=== PATIENT | male | born 1945 | race Caucasian/White ===

== ENCOUNTER 2017-11-19 06:43 | Day surgery (SDC) | payer MEDICARE, OTHER ==
[~2017-11-19 06:43] MED LIST: CYCLOPENTOLATE 1% OPHTH DROPS 2 ML ONE; KETOROLAC 0.45% OPHTH DROPS ONE; PHENYLEPHRINE 2.5% OPHTH 2 ML DROPS ONE; PROPARACAINE 0.5% OPHTH DROPS 15 ML ONE
[2017-11-19] MEDS ORDERED: BRIMONIDINE 0.2% OPHTH DROPS 5 ML ONE (07:06)
[2017-11-19] MEDS ORDERED: TIMOLOL 0.5% OPHTH DROPS ONE (07:07)
[2017-11-19] MEDS ORDERED: CYCLOPENTOLATE 1% OPHTH DROPS 2 ML RIGHTEYE ONE (07:09)
[2017-11-19] MEDS ORDERED: PHENYLEPHRINE 2.5% OPHTH 2 ML DROPS RIGHTEYE ONE (07:09)
[2017-11-19] MEDS ORDERED: PROPARACAINE 0.5% OPHTH DROPS 15 ML RIGHTEYE ONE ×2 (07:09→08:27)
[2017-11-19] MEDS ORDERED: KETOROLAC 0.45% OPHTH DROPS RIGHTEYE ONE (07:09)
[2017-11-19] MEDS ORDERED: LACTATED RINGERS 500 ML IV ONE (07:15)
[2017-11-19] MEDS ORDERED: MIDAZOLAM 2 MG/2 ML VIAL IVP ONE (07:30)
[2017-11-19] MEDS ORDERED: BRIMONIDINE 0.2% OPHTH DROPS 5 ML OPTH ONE (08:26)
[2017-11-19] MEDS ORDERED: BSS/LIDOCAINE/EPINEPHRINE 1 ML SYRINGE IO ONE (08:26)
[2017-11-19] MEDS ORDERED: TIMOLOL 0.5% OPHTH DROPS OPTH ONE (08:26)
[2017-11-19] MEDS ORDERED: EPINEPHrine 1 MG/ML AMP IVP ONE (08:26)
[2017-11-19] MEDS ORDERED: CHONDR SULF/HYALURONATE SYRINGE IO ONE (08:26)
[2017-11-19] MEDS ORDERED: TRIAMCIN/MOXIFLOX/VANCO 1 ML VIAL IO ONE (08:27)
[2017-11-19 09:18] VITALS: BP 138/78
--- NOTE | 2017-11-19 09:50 | OPERATIVE REPORT ---
DATE OF SERVICE: 11/19/2017 Physician: Bryson Rg MD DATE OF SURGERY: 11/19/2017 PREOPERATIVE DIAGNOSIS: Visually significant cataract, right eye. This is his first cataract surgery. POSTOPERATIVE DIAGNOSIS: Visually significant cataract, right eye. This is his first cataract surgery. NAME OF PROCEDURE: Phacoemulsification with posterior chamber intraocular lens implant, right eye. SURGEON: Bryson Rg MD ANESTHESIA: Monitored anesthesia care. COMPLICATIONS: None. OPERATIVE INDICATIONS: This is a 72-year-old man with progressive vision loss in the right eye due to 3+ nuclear sclerotic cataract. Best corrected visual acuity was 20/30 with glare to 20/60 in the right eye. INDICATIONS FOR SURGERY: Overall decrease in vision, difficulty seeing words and game scores on TV, difficulty seeing street signs, difficulty driving in low light or at night, difficulty driving at night because of headlights from other vehicles or street lights, and difficulty with glare or bright lights in any situation. He was consented at length concerning the risks and benefits of cataract surgery, after which he expressed a desire to proceed with surgery. OPERATIVE PROCEDURE: The patient was taken into OR #3 and placed under monitored anesthesia care. A surgical timeout was conducted confirming correct patient, correct procedure, and correct surgical site. He was placed on the LenSx laser and his eye docked to the laser interface. The laser performed the capsulotomy and lens softening, phaco wound and toric marker incisions. He was then moved to the operating microscope, given topical anesthesia, and prepped and draped in the usual sterile fashion. The eye was entered at the 12 and 9 o'clock positions. Intracameral Shugarcaine was injected into the anterior chamber, followed by Viscoat. The capsulorrhexis flap created by the LenSx laser was removed from the anterior chamber. The nucleus was hydrodissected and phacoemulsified. The cortex was evacuated using automated infusion and aspiration (I&A). Provisc was injected in the capsular bag, and a 26.5 diopter toric intraocular lens was inserted into the bag and rotated to axis 020. Approximately 0.7 mL of a mixture of triamcinolone, moxifloxacin, vancomycin was injected subconjunctivally in the superior quadrant for infection and inflammation prophylaxis. I&A was used to evacuate the viscoelastic materials. The lens was verified to still be in the 020 axis. The eye was inflated to physiologic pressure using balanced salt solution and found to be watertight. One final check of the axis confirmed good centration and axis 020. The patient was then taken from the operating room in good condition, given postoperative instructions. TD: 11/19/2017 10:50 KARENA
== END 2017-11-19 06:44 | disposition home or self-care (01) ==
LOC: SDS 06:43
PROVIDERS: ATTEND Ophthalmology
PROC: 08RJ3JZ Replacement of Right Lens with Synthetic Substitute, Percutaneous Approach (ICD-10-PCS; principal; 2017-11-19 08:00)
DX: H25.11 Age-related nuclear cataract, right eye (principal); I10 Essential (primary) hypertension; F17.210 Nicotine dependence, cigarettes, uncomplicated
CPT/HCPCS: 66984; A9270; J3490; V2632

== ENCOUNTER 2018-01-07 06:41 | Day surgery (SDC) | payer MEDICARE ==
[2018-01-07] MEDS ORDERED: LACTATED RINGERS 1,000 ML IV ONE (06:57)
[2018-01-07] MEDS ORDERED: KETOROLAC 0.45% OPHTH DROPS LEFTEYE ONE (07:05)
[2018-01-07] MEDS ORDERED: PROPARACAINE 0.5% OPHTH DROPS 15 ML LEFTEYE ONE ×2 (07:05→08:07)
[2018-01-07] MEDS ORDERED: CYCLOPENTOLATE 1% OPHTH DROPS 2 ML LEFTEYE ONE (07:05)
[2018-01-07] MEDS ORDERED: PHENYLEPHRINE 2.5% OPHTH 2 ML DROPS LEFTEYE ONE (07:05)
[2018-01-07] MEDS ORDERED: KETOROLAC 0.45% OPHTH DROPS ONE (07:26)
[2018-01-07] MEDS ORDERED: PHENYLEPHRINE 2.5% OPHTH 2 ML DROPS ONE (07:27)
[2018-01-07] MEDS ORDERED: PROPARACAINE 0.5% OPHTH DROPS 15 ML ONE (07:27)
[2018-01-07] MEDS ORDERED: CYCLOPENTOLATE 1% OPHTH DROPS 2 ML ONE (07:27)
[2018-01-07] MEDS ORDERED: MIDAZOLAM 2 MG/2 ML VIAL IVP ONE (08:05)
[2018-01-07] MEDS ORDERED: BRIMONIDINE 0.2% OPHTH DROPS 5 ML OPTH ONE (08:06)
[2018-01-07] MEDS ORDERED: EPINEPHrine 1 MG/ML AMP IR ONE (08:06)
[2018-01-07] MEDS ORDERED: TIMOLOL 0.5% OPHTH DROPS OPTH ONE (08:07)
[2018-01-07] MEDS ORDERED: BSS/LIDOCAINE/EPINEPHRINE 1 ML SYRINGE IO ONE (08:07)
[2018-01-07] MEDS ORDERED: CHONDR SULF/HYALURONATE SYRINGE IO ONE (08:07)
[2018-01-07 08:35] VITALS: BP 119/74
--- NOTE | 2018-01-07 08:39 | OPERATIVE REPORT ---
DATE OF SERVICE: 01/07/2018 Physician: Bryson Rg MD PREOPERATIVE DIAGNOSIS: Visually significant cataract, left eye. Cataract surgery was performed on the right eye, 19 November 2017. POSTOPERATIVE DIAGNOSIS: Visually significant cataract, left eye. Cataract surgery was performed on the right eye, 19 November 2017. PROCEDURE: Phacoemulsification with posterior chamber intraocular lens implant , left eye. SURGEON: Bryson Rg MD ANESTHESIA: Monitored anesthesia care. COMPLICATIONS: None. OPERATIVE INDICATIONS: This is a 72-year-old man with progressive vision loss in the left eye due to 3+ nuclear sclerotic cataract. Best corrected visual acuity was 20/60 with glare to 20/100. 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 Indications for surgery were overall decrease in vision, difficulty seeing words on a computer screen, difficulty reading, difficulty seeing words, closed captions or game scores on TV; difficulty seeing street signs, difficulty driving in low light or at night, difficulty driving at night because of headlights from other vehicles and difficulty with glare or bright lights in any situation. He was consented at length concerning risks and benefits of cataract surgery, after which he expressed a desire to proceed with surgery. OPERATIVE PROCEDURE: The patient was taken into OR #3 and placed under monitored anesthesia care. A surgical timeout was conducted confirming correct patient, correct procedure, and correct surgical site. He was given topical anesthesia and then prepped and draped in the usual sterile fashion. The eye was entered at the 6 and 3 o'clock positions. Intracameral Shugarcaine was injected into the anterior chamber, followed by Viscoat. A continuous-tear curvilinear capsulorrhexis was performed. The nucleus was hydrodissected and phacoemulsified. The cortex was evacuated using automated infusion and aspiration. Provisc was injected in the capsular bag, and a 30.5 diopter intraocular lens was inserted in the bag. Approximately 0.8 mL of a mixture of triamcinolone and moxifloxacin was injected subconjunctivally in the superior quadrant for infection and inflammation prophylaxis. I and A was used to evacuate the viscoelastic material. The eye was inflated to physiologic pressure using balanced salt solution and found to be watertight. The patient was taken from the operating room in good condition and given postoperative instructions. TD: 01/07/2018 08:38 [email or web address]
== END 2018-01-07 06:42 | disposition home or self-care (01) ==
LOC: SDS 06:41
PROVIDERS: ATTEND Ophthalmology
PROC: 08RK3JZ Replacement of Left Lens with Synthetic Substitute, Percutaneous Approach (ICD-10-PCS; principal; 2018-01-07 08:00)
DX: H25.12 Age-related nuclear cataract, left eye (principal); H53.002 Unspecified amblyopia, left eye; I10 Essential (primary) hypertension; F17.210 Nicotine dependence, cigarettes, uncomplicated
CPT/HCPCS: 66984; A9270; J3490; J7120; V2632